=== PATIENT | male | born 1965 | race Caucasian/White ===

== ENCOUNTER 2018-10-20 16:35 | Inpatient (IN) | payer OTHER ==
[2018-10-20 17:54] VITALS: BMI 30.5
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
[2018-10-20] MEDS ORDERED: MAGNESIUM HYDROX 2400MG/30ML ORAL SUSPENSION 30 ML CUP PO PRN (20:34)
[2018-10-20] MEDS ORDERED: MAG HYDROX/AL HYDROX/SIMETH 30 ML UNIT-DOSE CUP PO PRN (20:34)
[2018-10-20] MEDS ORDERED: guaiFENesin/D-METHORPHAN HB 10 ML UNIT-DOSE CUPS PO PRN (20:34)
[2018-10-20] MEDS ORDERED: LOPERAMIDE HCL 2 MG CAPSULE PO PRN (20:34)
[2018-10-20] MEDS ORDERED: IBUPROFEN 400 MG TABLET (FP) PO PRN (20:34)
[2018-10-20] MEDS ORDERED: NICOTINE POLACRILEX 2 MG GUM BC PRN (20:34)
[2018-10-20] MEDS ORDERED: MENTHOL/PHENOL 1 EACH UD MM PRN (20:34)
[2018-10-20] MEDS ORDERED: ACETAMINOPHEN 325 MG TABLET (FP) PO PRN (20:34)
[2018-10-20] MEDS ORDERED: MAGNESIUM CITRATE 300 ML BOTTLE PO PRN (20:34)
[2018-10-20] MEDS ORDERED: P-EPHED 60MG/TRIPROLIDI 2.5MG TABLET PO PRN (20:34)
[2018-10-20] MEDS ORDERED: TRIMETHOBENZAMIDE HCL 200MG/2ML INJ IM PRN (20:55)
[2018-10-20] MEDS ORDERED: METHADONE HCL 10 MG TABLET (FOR DETOX USE ONLY) PO ONE ×2 (21:45→23:00)
[2018-10-20] MEDS: diazePAM 5 MG TABLET PO PRN (22:59)
[2018-10-20] MEDS: THIAMINE HCL 100 MG TABLET (FP) PO SCH (23:01)
--- NOTE | 2018-10-21 07:43 | CONSULT ---
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 Patient reports withdrawal symptoms and seeking for detox. Substance Abuse History: - Smoking Cessation. Smoking history: Current every day smoker. Have you smoked in the past 12 months: Yes. Aproximately how many cigarettes per day: 4. Hx Chewing Tobacco Use: No. Initiated information on smoking cessation: Yes. 'Breaking Loose' booklet given: 10/20/18. - Substance & Tx. History. Hx Alcohol Use: No. Hx Substance Use: Yes. Substance Use Type : Heroin. Hx Substance Use Treatment: Yes ([facility]). - Substances Abused. HEROIN. Route: Injection. Frequency: Daily. Amount used: 10-15 BAGS. Age of first use: 16. Date of Last Use: 10/19/18 Medical History: HepC+, nephrolitiasis, Psychiatric History: Patient reports history of anxiety, depression and ainsomnioa, reports psychiatric admission on 08/2018 at [facility], denies suicidal, homicidal history, reports taking prior to admission. Seroquel 200mg po qhs with good response. Physical/Sexual Abuse/Trauma History: Denies Additional Comment: Seroquel 200mg po qhs Mental Status Exam - Mental Status Exam Alert and Oriented to: Person Cognitive Function: Fair Patient Appearance: Unkempt Mood: Anxious Affect: Mood Congruent Patient Behavior: Cooperative Speech Pattern: Appropriate Voice Loudness: Normal Thought Process: Goal Oriented Thought Disorder: Being Controlled Hallucinations: Denies Suicidal Ideation: Denies Homicidal Ideation: Denies Insight/Judgement: Fair Sleep: Difficulty falling asleep Appetite: Weight gain Muscle strength/Tone: Normal Gait/Station: Normal Additional Comments: Seroquel 200mg po qhs Psychiatric Findings - Problem List ([place] 1, 2,3) (1) Drug-induced mood disorder Current Visit: Yes Status: Acute (2) Opioid dependence with withdrawal Current Visit: Yes Status: Acute (3) Drug induced insomnia Current Visit: Yes Status: Chronic (4) Hepatitis C carrier Current Visit: Yes Status: Chronic (5) IV drug user Current Visit: Yes Status: Chronic (6) Nicotine dependence Current Visit: Yes Status: Chronic Qualifiers: Nicotine product type: cigarettes Substance use status: uncomplicated Qualified Code(s): F17.210 - Nicotine dependence, cigarettes, uncomplicated - Initial Treatment Plan Initial Treatment Plan: Seroquel 200MG PO QHS
[2018-10-21] MEDS ORDERED: METHADONE HCL 10 MG TABLET (FOR DETOX USE ONLY) PO ONE (10:00)
--- NOTE | 2018-10-21 10:03 | PN ---
BHS COWS - Scale Resting Pulse: 0= [place] 80 or Below Sweatin=Flushed/Facial Moisture Restless Observation: 1= Difficult to Sit Still Pupil Size: 0= Normal to Room Light Bone or Joint Aches: 2= Severe Diffuse Aches Runny Nose/ Eye Tearin= Nasal Congestion GI Upset > 30mins: 2= Nausea/Diarrhea Tremor Observation of Outstretched Hands: 2= Slight Tremor Visible Yawning Observation: 2= >3x During Session Anxiety or Irritability: 2=Irritable/Anxious Goose Flesh Skin: 0=Smooth Skin COWS Score: 14 BHS Progress Note (SOAP) Subjective: agitation anxiety sweats irritable interrupted sleep body aches Objective: 10/21/18 10:02 Vital Signs Temperature 97.7 F 10/21/18 09:21 Pulse Rate 68 10/21/18 09:21 Respiratory Rate 18 10/21/18 09:21 Blood Pressure 119/64 10/21/18 09:21 O2 Sat by Pulse Oximetry (%) labs pending aaox3 ambulating no acute distress Assessment: 10/21/18 10:03 withdrawal sx Plan: continue detox increase fluids labs pending
[2018-10-21 10:12] LABS: ALK PHOS 55 U/L (45-117); ANION GAP 5 MMOL/L (8-16); BILIRUBIN,TOTAL 0.3 mg/dL (0.2-1); BLOOD UREA NITROGEN 17 mg/dL (7-18); CALCIUM 8.5 mg/dL (8.5-10.1); CHLORIDE 105 mmol/L (98-107); CO2 30 mmol/L (21-32); CREATININE 0.8 mg/dL (0.55-1.3); GLUCOSE,RANDOM 95 mg/dL (74-106); POTASSIUM 4.7 mmol/L (3.5-5.1); SGOT/AST 26 U/L (15-37); SGPT/ALT 43 U/L (13-61); SODIUM 140 mmol/L (136-145); TOT PROT 6.2 g/dl (6.4-8.2)
[2018-10-21] MEDS: NICOTINE 14 MG/24 HOURS TOPICAL PATCH TD SCH (10:15)
[2018-10-21] MEDS: PRENATAL VITAMINS W/ FOLIC ACID TABLET (FP) PO SCH (10:15)
[2018-10-21] MEDS: diazePAM 5 MG TABLET PO PRN (10:18)
[2018-10-21 10:37] LABS: HEMATOCRIT 40.8 % (35.4-49); HEMOGLOBIN 13.8 GM/dL (11.7-16.9); MCH 30.9 pg (25.7-33.7); MCHC 33.8 g/dl (32.0-35.9); MEAN CELL VOLUME 91.3 fl (80-96); MEAN PLT VOLUME 9.6 fl (7.5-11.1); PLATELET COUNT 224 K/MM3 (134-434); RBC 4.47 M/mm3 (4.00-5.60); RDW 14.3 % (11.9-15.9); WHITE BLOOD COUNT 5.4 K/mm3 (4.0-10.0)
[2018-10-21] MEDS: THIAMINE HCL 100 MG TABLET (FP) PO SCH (22:23)
[2018-10-21] MEDS: QUEtiapine FUMARATE 200 MG TABLET PO SCH (22:23)
[2018-10-21 23:12] LABS: URINE APPEARANCE TURBID; URINE BILIRUBIN NEGATIVE (<2.0 mg/dL); URINE COLOR YELLOW; URINE GLUCOSE (UA) NEGATIVE (NEGATIVE); URINE KETONE NEGATIVE (NEGATIVE); URINE LEUK ESTERASE NEGATIVE (NEGATIVE); URINE NITRITE NEGATIVE (NEGATIVE); URINE PROTEIN NEGATIVE (NEGATIVE); URINE UROBILINOGEN NEGATIVE mg/dL (0.2-1.0)
[2018-10-22] MEDS ORDERED: METHADONE HCL 5 MG TABLET (FOR DETOX USE ONLY) PO ONE (10:00)
[2018-10-22] MEDS: PRENATAL VITAMINS W/ FOLIC ACID TABLET (FP) PO SCH (10:21)
[2018-10-22] MEDS: NICOTINE 14 MG/24 HOURS TOPICAL PATCH TD SCH (10:21)
--- NOTE | 2018-10-22 10:27 | PN ---
S COWS - Scale Resting Pulse: 0= [place] 80 or Below Sweatin=Flushed/Facial Moisture Restless Observation: 0= Sits Still Pupil Size: 0= Normal to Room Light Bone or Joint Aches: 2= Severe Diffuse Aches Runny Nose/ Eye Tearin= Runny Nose/Eyes GI Upset > 30mins: 0= None Tremor Observation of Outstretched Hands: 2= Slight Tremor Visible Yawning Observation: 2= >3x During Session Anxiety or Irritability: 1=Feels Anxious/Irritable Goose Flesh Skin: 0=Smooth Skin COWS Score: 11 S Progress Note (SOAP) Subjective: body aches sweats tired interrupted sleep Objective: 10/22/18 10:22 Vital Signs Temperature 97.0 10/22/18 07:00 Pulse Rate 72 10/22/18 07:00 Respiratory Rate 16 10/22/18 07:00 Blood Pressure 113/70 10/22/18 07:00 O2 Sat by Pulse Oximetry (%) Laboratory Tests 10/21/18 10/21/18 10/21/18 00:00 07:00 07:00 WBC 5.4 RBC 4.47 Hgb 13.8 Hct 40.8 MCV 91.3 MCH 30.9 MCHC 33.8 RDW 14.3 Plt Count 224 MPV 9.6 Sodium 140 Potassium 4.7 Chloride 105 Carbon Dioxide 30 Anion Gap 5 L BUN 17 Creatinine 0.8 Creat Clearance w eGFR > 60 Random Glucose 95 Calcium 8.5 Total Bilirubin 0.3 AST 26 ALT 43 Alkaline Phosphatase 55 Total Protein 6.2 L Albumin 3.0 L Urine Color Yellow Urine Appearance Turbid Urine pH 5.0 Ur Specific [place] 1.024 Urine Protein Negative Urine Glucose (UA) Negative Urine Ketones Negative Urine Blood Negative Urine Nitrite Negative Urine Bilirubin Negative Urine Urobilinogen Negative Ur Leukocyte Esterase Negative RPR Titer 10/21/18 07:00 WBC RBC Hgb Hct MCV MCH MCHC RDW Plt Count MPV Sodium Potassium Chloride Carbon Dioxide Anion Gap BUN Creatinine Creat Clearance w eGFR Random Glucose Calcium Total Bilirubin AST ALT Alkaline Phosphatase Total Protein Albumin Urine Color Urine Appearance Urine pH Ur Specific [place] Urine Protein Urine Glucose (UA) Urine Ketones Urine Blood Urine Nitrite Urine Bilirubin Urine Urobilinogen Ur Leukocyte Esterase RPR Titer Nonreactive aaox3 ambulating no acute distress Assessment: 01/24/19 10:25 withdrawal sx Plan: continue detox increase fluids motrin/tylenol prn
--- NOTE | 2018-10-22 12:26 | EKG ---
Test Reason : Blood Pressure : / mmHG Vent. Rate : 065 BPM Atrial Rate : 065 BPM P-R Int : 138 ms QRS Dur : 090 ms QT Int : 432 ms P-R-T Axes : 032 004 006 degrees QTc Int : 449 ms NORMAL SINUS RHYTHM WITH SINUS ARRHYTHMIA NORMAL ECG NO PREVIOUS ECGS AVAILABLE Confirmed by KURT FLORES MD ([id number]) on 10/22/2018 12:26:11 PM Referred By: Confirmed By:KURT FLORES MD
[2018-10-22] MEDS: diazePAM 5 MG TABLET PO PRN ×2 (15:24→22:19)
[2018-10-22] MEDS: QUEtiapine FUMARATE 200 MG TABLET PO SCH (22:19)
[2018-10-22] MEDS: THIAMINE HCL 100 MG TABLET (FP) PO SCH (22:20)
[2018-10-23] MEDS ORDERED: METHADONE HCL 5 MG TABLET (FOR DETOX USE ONLY) PO ONE (10:00)
[2018-10-23] MEDS: PRENATAL VITAMINS W/ FOLIC ACID TABLET (FP) PO SCH (10:19)
[2018-10-23] MEDS: NICOTINE 14 MG/24 HOURS TOPICAL PATCH TD SCH (10:19)
--- NOTE | 2018-10-23 13:00 | PN ---
BHS Progress Note (SOAP) Subjective: sweats I want to stay until friday; pt is able to stay until friday and will go to rehab afterwards. Objective: 10/23/18 13:00 Vital Signs Temperature 97.3 F L 10/23/18 09:22 Pulse Rate 69 10/23/18 09:22 Respiratory Rate 18 10/23/18 09:22 Blood Pressure 87/52 L 10/23/18 09:22 O2 Sat by Pulse Oximetry (%) aapx3 ambulating no acute distress Assessment: 10/23/18 13:00 mild withdrawal sx Plan: continue detox increase fluids
[2018-10-23] MEDS: diazePAM 5 MG TABLET PO PRN (15:06)
[2018-10-23] MEDS: MELATONIN 5 MG TABLETS PO PRN (22:06)
[2018-10-23] MEDS: THIAMINE HCL 100 MG TABLET (FP) PO SCH (22:06)
[2018-10-23] MEDS: QUEtiapine FUMARATE 200 MG TABLET PO SCH (22:06)
[2018-10-24] MEDS ORDERED: METHADONE HCL 10 MG TABLET (FOR DETOX USE ONLY) PO ONE (10:00)
[2018-10-24] MEDS: PRENATAL VITAMINS W/ FOLIC ACID TABLET (FP) PO SCH (10:11)
[2018-10-24] MEDS: NICOTINE 14 MG/24 HOURS TOPICAL PATCH TD SCH (10:11)
--- NOTE | 2018-10-24 13:29 | PN ---
BHS Progress Note (SOAP) Subjective: Back pain and sweats Objective: 10/24/18 13:28 Vital Signs 10/24/18 10/24/18 10/24/18 06:00 06:23 09:47 Temperature 97.7 F 98.1 F Pulse Rate 57 L 65 Respiratory 18 18 18 Rate Blood Pressure 92/55 L 96/53 L Laboratory Last Values WBC 5.4 K/mm3 (4.0-10.0) 10/21/18 07:00 RBC 4.47 M/mm3 (4.00-5.60) 10/21/18 07:00 Hgb 13.8 GM/dL (11.7-16.9) 10/21/18 07:00 Hct 40.8 % (35.4-49) 10/21/18 07:00 MCV 91.3 fl (80-96) 10/21/18 07:00 MCH 30.9 pg (25.7-33.7) 10/21/18 07:00 MCHC 33.8 g/dl (32.0-35.9) 10/21/18 07:00 RDW 14.3 % (11.9-15.9) 10/21/18 07:00 Plt Count 224 K/MM3 (134-434) 10/21/18 07:00 MPV 9.6 fl (7.5-11.1) 10/21/18 07:00 Sodium 140 mmol/L (136-145) 10/21/18 07:00 Potassium 4.7 mmol/L (3.5-5.1) 10/21/18 07:00 Chloride 105 mmol/L (98-107) 10/21/18 07:00 Carbon Dioxide 30 mmol/L (21-32) 10/21/18 07:00 Anion Gap 5 MMOL/L (8-16) L 10/21/18 07:00 BUN 17 mg/dL (7-18) 10/21/18 07:00 Creatinine 0.8 mg/dL (0.55-1.3) 10/21/18 07:00 Creat Clearance w eGFR > 60 (>60) 10/21/18 07:00 Random Glucose 95 mg/dL (74-106) 10/21/18 07:00 Calcium 8.5 mg/dL (8.5-10.1) 10/21/18 07:00 Total Bilirubin 0.3 mg/dL (0.2-1) 10/21/18 07:00 AST 26 U/L (15-37) 10/21/18 07:00 ALT 43 U/L (13-61) 10/21/18 07:00 Alkaline Phosphatase 55 U/L (45-117) 10/21/18 07:00 Total Protein 6.2 g/dl (6.4-8.2) L 10/21/18 07:00 Albumin 3.0 g/dl (3.4-5.0) L 10/21/18 07:00 Urine Color Yellow 10/21/18 00:00 Urine Appearance Turbid 10/21/18 00:00 Urine pH 5.0 (5.0-8.0) 10/21/18 00:00 Ur Specific [place] 1.024 (1.010-1.035) 10/21/18 00:00 Urine Protein Negative (NEGATIVE) 10/21/18 00:00 Urine Glucose (UA) Negative (NEGATIVE) 10/21/18 00:00 Urine Ketones Negative (NEGATIVE) 10/21/18 00:00 Urine Blood Negative (NEGATIVE) 10/21/18 00:00 Urine Nitrite Negative (NEGATIVE) 10/21/18 00:00 Urine Bilirubin Negative (<2.0 mg/dL) 10/21/18 00:00 Urine Urobilinogen Negative mg/dL (0.2-1.0) 10/21/18 00:00 Ur Leukocyte Esterase Negative (NEGATIVE) 10/21/18 00:00 RPR Titer Nonreactive (NONREACTIVE) 10/21/18 07:00 Labs noted-no panic values Assessment: 10/24/18 13:29 Withdrawal sx Plan: Continue detox
[2018-10-24] MEDS: THIAMINE HCL 100 MG TABLET (FP) PO SCH (22:40)
[2018-10-24] MEDS: QUEtiapine FUMARATE 200 MG TABLET PO SCH (22:40)
[2018-10-25] MEDS ORDERED: METHADONE HCL 5 MG TABLET (FOR DETOX USE ONLY) PO ONE (06:00)
[2018-10-25] MEDS: PRENATAL VITAMINS W/ FOLIC ACID TABLET (FP) PO SCH (09:44)
[2018-10-25] MEDS: NICOTINE 14 MG/24 HOURS TOPICAL PATCH TD SCH (09:45)
--- NOTE | 2018-10-25 16:53 | PN ---
BHS Progress Note (SOAP) Subjective: Interrupted sleep, body aches, runny nose. Patient for discharge today but still having withdrawal symptoms. Patient requested to be discharged tomorrow instead as his program ([facility]) only does intake during the week and he will have to go there tomorrow, plus he's still having withdrawal symptoms. Objective: 10/25/18 16:50 Last Vital Signs Temp Pulse Resp BP Pulse Ox 97.5 F L 79 18 96/59 L 10/25/18 14:30 10/25/18 14:30 10/25/18 14:30 10/25/18 14:30 Hypotension noted: 96/59, encouraged to drink more water, asymptomatic Laboratory Tests 10/21/18 10/21/18 10/21/18 00:00 07:00 07:00 WBC 5.4 RBC 4.47 Hgb 13.8 Hct 40.8 MCV 91.3 MCH 30.9 MCHC 33.8 RDW 14.3 Plt Count 224 MPV 9.6 Sodium 140 Potassium 4.7 Chloride 105 Carbon Dioxide 30 Anion Gap 5 L BUN 17 Creatinine 0.8 Creat Clearance w eGFR > 60 Random Glucose 95 Calcium 8.5 Total Bilirubin 0.3 AST 26 ALT 43 Alkaline Phosphatase 55 Total Protein 6.2 L Albumin 3.0 L Urine Color Yellow Urine Appearance Turbid Urine pH 5.0 Ur Specific [place] 1.024 Urine Protein Negative Urine Glucose (UA) Negative Urine Ketones Negative Urine Blood Negative Urine Nitrite Negative Urine Bilirubin Negative Urine Urobilinogen Negative Ur Leukocyte Esterase Negative RPR Titer 10/21/18 07:00 WBC RBC Hgb Hct MCV MCH MCHC RDW Plt Count MPV Sodium Potassium Chloride Carbon Dioxide Anion Gap BUN Creatinine Creat Clearance w eGFR Random Glucose Calcium Total Bilirubin AST ALT Alkaline Phosphatase Total Protein Albumin Urine Color Urine Appearance Urine pH Ur Specific [place] Urine Protein Urine Glucose (UA) Urine Ketones Urine Blood Urine Nitrite Urine Bilirubin Urine Urobilinogen Ur Leukocyte Esterase RPR Titer Nonreactive Labs reviewed Assessment: 10/25/18 16:51 Withdrawal symptoms Hypotension noted Plan: Continue detox Hypotension: asymptomatic, encouraged PO water hydration
[2018-10-25] MEDS: THIAMINE HCL 100 MG TABLET (FP) PO SCH (22:14)
[2018-10-25] MEDS: QUEtiapine FUMARATE 200 MG TABLET PO SCH (22:14)
[2018-10-25] MEDS: MELATONIN 5 MG TABLETS PO PRN (22:15)
[2018-10-26 09:28] VITALS: BP 108/60; PULSE 93; TEMP 96.8
--- NOTE | 2018-10-26 09:34 | DS ---
[facility] Detox Discharge Summary Admission Date: 10/20/18 Discharge Date: 10/26/18 - History Present History: Opioid Dependence - Physical Exam Results Vital Signs: Vital Signs Temperature 96.8 F L 10/26/18 08:35 Pulse Rate 93 H 10/26/18 08:35 Respiratory Rate 18 10/26/18 08:35 Blood Pressure 108/60 10/26/18 08:35 O2 Sat by Pulse Oximetry (%) - Treatment Hospital Course: Detox Protocol Followed, Detoxed Safely, Responded well, Discharged Condition Good, Rehab Referral Accepted - Medication Discharge Medications: Ambulatory Orders Alprazolam [Xanax] 1 mg PO DAILY 10/20/18 Quetiapine Fumarate [Seroquel -] 100 mg PO HS #30 tab 10/21/18 Quetiapine Fumarate [Seroquel] 100 mg PO HS #30 tablet 10/21/18 - Diagnosis (1) Depressed affect Current Visit: Yes Status: Acute (2) Drug-induced mood disorder Current Visit: Yes Status: Acute (3) Opioid dependence with withdrawal Current Visit: Yes Status: Chronic (4) Drug induced insomnia Current Visit: Yes Status: Chronic (5) Hepatitis C carrier Current Visit: Yes Status: Chronic (6) IV drug user Current Visit: Yes Status: Chronic (7) Nicotine dependence Current Visit: Yes Status: Chronic Qualifiers: Nicotine product type: cigarettes Substance use status: uncomplicated Qualified Code(s): F17.210 - Nicotine dependence, cigarettes, uncomplicated (8) PPD positive, treated Current Visit: Yes Status: Chronic - AMA Did Patient Leave Against Medical Advice: No ([facility]erred to [facility] )
== END 2018-10-26 08:56 | disposition home or self-care (01) | DRG 773 ==
LOC: YASAS 16:35 → Y6N 20:51
PROVIDERS: ADMIT Neuromusculoskeletal Medicine & OMM; ATTEND Neuromusculoskeletal Medicine & OMM
PROC: HZ2ZZZZ Detoxification Services for Substance Abuse Treatment (ICD-10-PCS; principal; 2018-10-20)
DX: F11.23 Opioid dependence with withdrawal (principal); F17.210 Nicotine dependence, cigarettes, uncomplicated; F19.282 Other psychoactive substance dependence with psychoactive substance-induced sleep disorder; F19.24 Other psychoactive substance dependence with psychoactive substance-induced mood disorder; I95.9 Hypotension, unspecified; R45.89 Other symptoms and signs involving emotional state; R76.11 Nonspecific reaction to tuberculin skin test without active tuberculosis; B18.2 Chronic viral hepatitis C
CPT/HCPCS: 36415; 71046-TC-FY; 80053; 81003; 85027; 86593; 93005; 93010

== ENCOUNTER 2022-06-12 12:54 | Inpatient (IN) | payer OTHER ==
[2022-06-12 15:30] VITALS: BMI 27.6
[2022-06-12] MEDS ORDERED: ONDANSETRON *ODT* 4 MG TABLET SL PRN (18:40)
[2022-06-12] MEDS ORDERED: MAGNESIUM CITRATE 300 ML BOTTLE PO PRN (18:40)
[2022-06-12] MEDS ORDERED: MAG HYDROX/AL HYDROX/SIMETH 30 ML UNIT-DOSE CUP PO PRN (18:40)
[2022-06-12] MEDS ORDERED: BISMUTH SUBSALICYLATE 524 MG/30 ML PO PRN (18:40)
[2022-06-12] MEDS ORDERED: IBUPROFEN 600 MG TABLET (FP) PO PRN (18:40)
[2022-06-12] MEDS ORDERED: ACETAMINOPHEN 325 MG TABLET (FP) PO PRN ×2 (18:40)
[2022-06-12] MEDS ORDERED: MAGNESIUM HYDROX 2400MG/30ML ORAL SUSPENSION 30 ML CUP PO PRN (18:40)
[2022-06-12] MEDS ORDERED: DICYCLOMINE HCL 10 MG CAPSULE PO PRN (18:40)
[2022-06-12] MEDS ORDERED: NALOXONE HCL (KLOXXADO) 8 MG SPRAY NS PRN (18:40)
[2022-06-12] MEDS ORDERED: BENZOCAINE/MENTHOL (CHLORASEPTIC ) LOZENGE MM PRN (18:40)
[2022-06-12] MEDS ORDERED: IBUPROFEN 400 MG TABLET (FP) PO PRN (18:40)
[2022-06-12] MEDS ORDERED: NICOTINE 10 MG CARTRIDGE (INHALER) IH PRN (18:40)
[2022-06-12] MEDS ORDERED: LOPERAMIDE HCL 2 MG CAPSULE PO PRN (18:40)
[2022-06-12] MEDS: cloNIDine HCL 0.1 MG TABLET PO PRN (19:52)
[2022-06-12] MEDS: METHOCARBAMOL 500 MG TABLET PO PRN (19:52)
[2022-06-12] MEDS ORDERED: methaDONE HCL 10 MG TABLET (FOR DETOX USE ONLY) PO ONE (19:55)
[2022-06-12] MEDS ORDERED: QUEtiapine FUMARATE 100 MG TABLET (FP) PO ONE (20:00)
[2022-06-12] MEDS: MELATONIN 5 MG TABLETS PO SCH (22:16)
[2022-06-12] MEDS: hydrOXYzine PAMOATE 25 MG CAPSULE (FP) PO SCH (22:16)
[2022-06-12] MEDS: THIAMINE HCL 100 MG TABLET (FP) PO SCH (22:16)
[2022-06-13] MEDS: METHOCARBAMOL 500 MG TABLET PO PRN ×2 (06:24→17:32)
[2022-06-13] MEDS: cloNIDine HCL 0.1 MG TABLET PO PRN ×2 (06:24→22:15)
[2022-06-13] MEDS: hydrOXYzine PAMOATE 25 MG CAPSULE (FP) PO SCH ×5 (06:24→22:15)
[2022-06-13] MEDS: PRENATAL VITAMINS W/ FOLIC ACID TABLET (FP) PO SCH (09:41)
[2022-06-13 10:57] LABS: ALBUMIN 3.4 g/dl (3.4-5.0); BLOOD UREA NITROGEN 19.3 mg/dL (7-18)
[2022-06-13 10:58] LABS: CREATININE 0.9 mg/dL (0.55-1.3)
[2022-06-13 11:00] LABS: BILIRUBIN,TOTAL 0.2 mg/dL (0.2-1); TOT PROT 6.9 g/dl (6.4-8.2)
[2022-06-13 11:03] LABS: CALCIUM 8.8 mg/dL (8.5-10.1); HEMATOCRIT 38.7 % (35.4-49); MCH 29.8 pg (25.7-33.7); MCHC 33.7 g/dl (32.0-35.9); MEAN CELL VOLUME 88.3 fl (80-96); MEAN PLT VOLUME 9.7 fl (7.5-11.1); PLATELET COUNT 188 10^3/uL (134-434); RBC 4.38 M/mm3 (4.00-5.60); RDW 13.8 % (11.9-15.9); WHITE BLOOD COUNT 5.8 K/mm3 (4.0-10.0)
[2022-06-13 11:44] LABS: HIV INTERPRETATION NEGATIVE (NEGATIVE)
[2022-06-13] MEDS: QUEtiapine FUMARATE 50 MG TABLET PO SCH (17:32)
[2022-06-13] MEDS: QUEtiapine FUMARATE 300 MG TABLET PO SCH (22:15)
[2022-06-13] MEDS: MELATONIN 5 MG TABLETS PO SCH (22:15)
[2022-06-13] MEDS: THIAMINE HCL 100 MG TABLET (FP) PO SCH (22:15)
[2022-06-14] MEDS: hydrOXYzine PAMOATE 25 MG CAPSULE (FP) PO SCH ×5 (06:56→22:21)
[2022-06-14] MEDS ORDERED: methaDONE HCL 10 MG TABLET (FOR DETOX USE ONLY) PO ONE (10:00)
[2022-06-14] MEDS: PRENATAL VITAMINS W/ FOLIC ACID TABLET (FP) PO SCH (10:15)
[2022-06-14] MEDS: QUEtiapine FUMARATE 50 MG TABLET PO SCH ×2 (10:15→17:37)
[2022-06-14] MEDS: MELATONIN 5 MG TABLETS PO SCH (22:21)
[2022-06-14] MEDS: QUEtiapine FUMARATE 300 MG TABLET PO SCH (22:21)
[2022-06-14] MEDS: THIAMINE HCL 100 MG TABLET (FP) PO SCH (22:21)
[2022-06-15] MEDS: hydrOXYzine PAMOATE 25 MG CAPSULE (FP) PO SCH ×5 (06:01→22:19)
[2022-06-15] MEDS: QUEtiapine FUMARATE 50 MG TABLET PO SCH ×2 (10:00→17:20)
[2022-06-15] MEDS: METHOCARBAMOL 500 MG TABLET PO PRN (10:00)
[2022-06-15] MEDS: PRENATAL VITAMINS W/ FOLIC ACID TABLET (FP) PO SCH (10:00)
[2022-06-15] MEDS: THIAMINE HCL 100 MG TABLET (FP) PO SCH (22:19)
[2022-06-15] MEDS: MELATONIN 5 MG TABLETS PO SCH (22:19)
[2022-06-15] MEDS: QUEtiapine FUMARATE 300 MG TABLET PO SCH (22:19)
[2022-06-16] MEDS: hydrOXYzine PAMOATE 25 MG CAPSULE (FP) PO SCH ×5 (06:48→22:10)
[2022-06-16] MEDS ORDERED: methaDONE HCL 10 MG TABLET (FOR DETOX USE ONLY) PO ONE (10:00)
[2022-06-16] MEDS: PRENATAL VITAMINS W/ FOLIC ACID TABLET (FP) PO SCH (10:09)
[2022-06-16] MEDS: QUEtiapine FUMARATE 50 MG TABLET PO SCH ×2 (10:11→17:59)
[2022-06-16] MEDS: QUEtiapine FUMARATE 300 MG TABLET PO SCH (22:09)
[2022-06-16] MEDS: THIAMINE HCL 100 MG TABLET (FP) PO SCH (22:10)
[2022-06-16] MEDS: MELATONIN 5 MG TABLETS PO SCH (22:10)
[2022-06-16] MEDS: CLINDAMYCIN HCL 150 MG CAPSULE (FP) PO SCH (23:02)
[2022-06-17] MEDS: CLINDAMYCIN HCL 150 MG CAPSULE (FP) PO SCH ×2 (06:50→11:44)
[2022-06-17] MEDS: hydrOXYzine PAMOATE 25 MG CAPSULE (FP) PO SCH ×2 (06:50→09:55)
[2022-06-17] MEDS ORDERED: QUEtiapine FUMARATE 25 MG TABLET ONE (09:50)
[2022-06-17] MEDS: PRENATAL VITAMINS W/ FOLIC ACID TABLET (FP) PO SCH (09:57)
[2022-06-17] MEDS: QUEtiapine FUMARATE 50 MG TABLET PO SCH (09:57)
[2022-06-17 12:59] VITALS: BP 128/90; PULSE 103; RESP 18; TEMP 97.7
== END 2022-06-17 13:34 | disposition other institution (70) | DRG 773 ==
LOC: YASAS 12:54 → Y3N 18:50
PROVIDERS: ADMIT Allergy & Immunology; ATTEND Surgery
PROC: HZ2ZZZZ Detoxification Services for Substance Abuse Treatment (ICD-10-PCS; principal; 2022-06-12)
DX: F11.23 Opioid dependence with withdrawal (principal); F13.20 Sedative, hypnotic or anxiolytic dependence, uncomplicated; F12.20 Cannabis dependence, uncomplicated; F17.210 Nicotine dependence, cigarettes, uncomplicated; F19.282 Other psychoactive substance dependence with psychoactive substance-induced sleep disorder; F19.24 Other psychoactive substance dependence with psychoactive substance-induced mood disorder; F31.9 Bipolar disorder, unspecified; Z62.810 Personal history of physical and sexual abuse in childhood; Z86.19 Personal history of other infectious and parasitic diseases; Z56.0 Unemployment, unspecified; Z59.00 Homelessness unspecified; Z91.013 Allergy to seafood
CPT/HCPCS: 36415; 71046-TC-FY; 80053; 85027; 86780; 87389; 93005; 93010; C9803-CS; U0003; U0005

== ENCOUNTER 2022-06-17 13:46 | Inpatient (IN) | payer OTHER ==
[2022-06-17] MEDS ORDERED: LOPERAMIDE HCL 2 MG CAPSULE PO PRN (14:41)
[2022-06-17] MEDS ORDERED: guaiFENesin 200 MG/10 ML 10 ML UNIT-DOSE CUPS PO PRN (14:41)
[2022-06-17] MEDS ORDERED: BENZOCAINE/MENTHOL (CHLORASEPTIC ) LOZENGE MM PRN (14:41)
[2022-06-17] MEDS ORDERED: MAG HYDROX/AL HYDROX/SIMETH 30 ML UNIT-DOSE CUP PO PRN (14:41)
[2022-06-17] MEDS ORDERED: MAGNESIUM CITRATE 300 ML BOTTLE PO PRN (14:41)
[2022-06-17] MEDS ORDERED: ACETAMINOPHEN 325 MG TABLET (FP) PO PRN (14:41)
[2022-06-17] MEDS ORDERED: MAGNESIUM HYDROX 2400MG/30ML ORAL SUSPENSION 30 ML CUP PO PRN (14:41)
[2022-06-17] MEDS ORDERED: P-EPHED 60MG/TRIPROLIDI 2.5MG TABLET PO PRN (14:41)
[2022-06-17] MEDS: CLINDAMYCIN HCL 150 MG CAPSULE (FP) PO SCH ×2 (17:45→23:42)
[2022-06-17] MEDS: QUEtiapine FUMARATE 50 MG TABLET PO SCH (17:45)
[2022-06-17] MEDS: MELATONIN 5 MG TABLETS PO SCH (21:42)
[2022-06-17] MEDS: hydrOXYzine PAMOATE 25 MG CAPSULE (FP) PO PRN (21:42)
[2022-06-17] MEDS: THIAMINE HCL 100 MG TABLET (FP) PO SCH (21:42)
[2022-06-17] MEDS: QUEtiapine FUMARATE 100 MG TABLET (FP) PO SCH (21:44)
[2022-06-18] MEDS: CLINDAMYCIN HCL 150 MG CAPSULE (FP) PO SCH ×3 (06:54→17:44)
[2022-06-18] MEDS: PRENATAL VITAMINS W/ FOLIC ACID TABLET (FP) PO SCH (10:26)
[2022-06-18] MEDS: QUEtiapine FUMARATE 50 MG TABLET PO SCH ×2 (10:26→17:44)
[2022-06-18] MEDS: NICOTINE 7 MG/24 HOURS TOPICAL PATCH TD SCH (10:26)
[2022-06-18] MEDS: MELATONIN 5 MG TABLETS PO SCH (21:27)
[2022-06-18] MEDS: hydrOXYzine PAMOATE 25 MG CAPSULE (FP) PO PRN (21:27)
[2022-06-18] MEDS: THIAMINE HCL 100 MG TABLET (FP) PO SCH (21:27)
[2022-06-18] MEDS: QUEtiapine FUMARATE 100 MG TABLET (FP) PO SCH (21:28)
[2022-06-19] MEDS: CLINDAMYCIN HCL 150 MG CAPSULE (FP) PO SCH ×4 (06:17→17:18)
[2022-06-19] MEDS: NICOTINE 7 MG/24 HOURS TOPICAL PATCH TD SCH (09:25)
[2022-06-19] MEDS: QUEtiapine FUMARATE 50 MG TABLET PO SCH ×2 (09:25→17:17)
[2022-06-19] MEDS: PRENATAL VITAMINS W/ FOLIC ACID TABLET (FP) PO SCH (09:25)
[2022-06-19] MEDS: IBUPROFEN 400 MG TABLET (FP) PO PRN (09:27)
[2022-06-19] MEDS: hydrOXYzine PAMOATE 25 MG CAPSULE (FP) PO PRN (09:27)
[2022-06-19] MEDS: MELATONIN 5 MG TABLETS PO SCH (21:23)
[2022-06-19] MEDS: THIAMINE HCL 100 MG TABLET (FP) PO SCH (21:23)
[2022-06-19] MEDS: QUEtiapine FUMARATE 100 MG TABLET (FP) PO SCH (21:23)
[2022-06-20] MEDS: CLINDAMYCIN HCL 150 MG CAPSULE (FP) PO SCH ×5 (00:43→23:46)
[2022-06-20] MEDS: QUEtiapine FUMARATE 50 MG TABLET PO SCH ×2 (09:44→17:15)
[2022-06-20] MEDS: IBUPROFEN 400 MG TABLET (FP) PO PRN (09:45)
[2022-06-20] MEDS: NICOTINE 7 MG/24 HOURS TOPICAL PATCH TD SCH (09:45)
[2022-06-20] MEDS: PRENATAL VITAMINS W/ FOLIC ACID TABLET (FP) PO SCH (09:45)
[2022-06-20] MEDS: QUEtiapine FUMARATE 100 MG TABLET (FP) PO SCH (21:13)
[2022-06-20] MEDS: MELATONIN 5 MG TABLETS PO SCH (21:13)
[2022-06-20] MEDS: THIAMINE HCL 100 MG TABLET (FP) PO SCH (21:13)
[2022-06-20] MEDS: hydrOXYzine PAMOATE 25 MG CAPSULE (FP) PO PRN (21:13)
[2022-06-21] MEDS: CLINDAMYCIN HCL 150 MG CAPSULE (FP) PO SCH ×3 (06:30→17:07)
[2022-06-21] MEDS: PRENATAL VITAMINS W/ FOLIC ACID TABLET (FP) PO SCH (09:06)
[2022-06-21] MEDS: NICOTINE 7 MG/24 HOURS TOPICAL PATCH TD SCH (09:06)
[2022-06-21] MEDS: QUEtiapine FUMARATE 50 MG TABLET PO SCH ×2 (09:06→17:07)
[2022-06-21] MEDS ORDERED: BUPRENORPHINE/NALOXONE 4 MG/1 MG FILM PACKET SL ONE (16:15)
[2022-06-21] MEDS ORDERED: BUPRENORPHINE/NALOXONE 8 MG/2 MG FILM PACKET SL SCH (18:00)
[2022-06-21] MEDS: QUEtiapine FUMARATE 100 MG TABLET (FP) PO SCH (21:09)
[2022-06-21] MEDS: THIAMINE HCL 100 MG TABLET (FP) PO SCH (21:09)
[2022-06-21] MEDS: MELATONIN 5 MG TABLETS PO SCH (21:09)
[2022-06-22] MEDS: CLINDAMYCIN HCL 150 MG CAPSULE (FP) PO SCH ×4 (00:11→18:03)
[2022-06-22] MEDS: QUEtiapine FUMARATE 50 MG TABLET PO SCH ×2 (10:12→17:38)
[2022-06-22] MEDS: PRENATAL VITAMINS W/ FOLIC ACID TABLET (FP) PO SCH (10:12)
[2022-06-22] MEDS: BUPRENORPHINE/NALOXONE 8 MG/2 MG FILM PACKET SL SCH ×2 (10:13→18:03)
[2022-06-22] MEDS: NICOTINE 7 MG/24 HOURS TOPICAL PATCH TD SCH (10:13)
[2022-06-22] MEDS: hydrOXYzine PAMOATE 25 MG CAPSULE (FP) PO PRN (21:09)
[2022-06-22] MEDS: QUEtiapine FUMARATE 100 MG TABLET (FP) PO SCH (21:09)
[2022-06-22] MEDS: MELATONIN 5 MG TABLETS PO SCH (21:10)
[2022-06-22] MEDS: THIAMINE HCL 100 MG TABLET (FP) PO SCH (21:10)
[2022-06-23] MEDS: CLINDAMYCIN HCL 150 MG CAPSULE (FP) PO SCH ×4 (00:30→17:55)
[2022-06-23] MEDS: QUEtiapine FUMARATE 50 MG TABLET PO SCH ×2 (10:28→17:54)
[2022-06-23] MEDS: NICOTINE 7 MG/24 HOURS TOPICAL PATCH TD SCH (10:29)
[2022-06-23] MEDS: BUPRENORPHINE/NALOXONE 8 MG/2 MG FILM PACKET SL SCH ×2 (10:29→17:55)
[2022-06-23] MEDS: PRENATAL VITAMINS W/ FOLIC ACID TABLET (FP) PO SCH (10:29)
[2022-06-23] MEDS: THIAMINE HCL 100 MG TABLET (FP) PO SCH (21:22)
[2022-06-23] MEDS: QUEtiapine FUMARATE 100 MG TABLET (FP) PO SCH (21:22)
[2022-06-23] MEDS: MELATONIN 5 MG TABLETS PO SCH (21:22)
[2022-06-24] MEDS: CLINDAMYCIN HCL 150 MG CAPSULE (FP) PO SCH ×3 (01:41→12:04)
[2022-06-24] MEDS: PRENATAL VITAMINS W/ FOLIC ACID TABLET (FP) PO SCH (10:31)
[2022-06-24] MEDS: NICOTINE 7 MG/24 HOURS TOPICAL PATCH TD SCH (10:31)
[2022-06-24] MEDS: BUPRENORPHINE/NALOXONE 8 MG/2 MG FILM PACKET SL SCH ×2 (10:33→17:27)
[2022-06-24] MEDS: QUEtiapine FUMARATE 50 MG TABLET PO SCH ×2 (11:00→17:27)
[2022-06-24] MEDS: QUEtiapine FUMARATE 100 MG TABLET (FP) PO SCH (21:20)
[2022-06-24] MEDS: MELATONIN 5 MG TABLETS PO SCH (21:20)
[2022-06-24] MEDS: THIAMINE HCL 100 MG TABLET (FP) PO SCH (21:20)
[2022-06-25] MEDS: QUEtiapine FUMARATE 50 MG TABLET PO SCH ×2 (10:12→17:57)
[2022-06-25] MEDS: PRENATAL VITAMINS W/ FOLIC ACID TABLET (FP) PO SCH (10:12)
[2022-06-25] MEDS: BUPRENORPHINE/NALOXONE 8 MG/2 MG FILM PACKET SL SCH ×2 (10:12→17:57)
[2022-06-25] MEDS: NICOTINE 7 MG/24 HOURS TOPICAL PATCH TD SCH (10:13)
[2022-06-25] MEDS: MELATONIN 5 MG TABLETS PO SCH (21:07)
[2022-06-25] MEDS: THIAMINE HCL 100 MG TABLET (FP) PO SCH (21:07)
[2022-06-25] MEDS: QUEtiapine FUMARATE 100 MG TABLET (FP) PO SCH (21:07)
[2022-06-26] MEDS: BUPRENORPHINE/NALOXONE 8 MG/2 MG FILM PACKET SL SCH ×2 (09:54→17:45)
[2022-06-26] MEDS: PRENATAL VITAMINS W/ FOLIC ACID TABLET (FP) PO SCH (09:55)
[2022-06-26] MEDS: NICOTINE 7 MG/24 HOURS TOPICAL PATCH TD SCH (09:55)
[2022-06-26] MEDS: QUEtiapine FUMARATE 50 MG TABLET PO SCH ×2 (09:55→17:45)
[2022-06-26] MEDS: QUEtiapine FUMARATE 100 MG TABLET (FP) PO SCH (21:04)
[2022-06-26] MEDS: MELATONIN 5 MG TABLETS PO SCH (21:04)
[2022-06-26] MEDS: THIAMINE HCL 100 MG TABLET (FP) PO SCH (21:04)
[2022-06-27] MEDS: QUEtiapine FUMARATE 50 MG TABLET PO SCH ×2 (09:37→18:13)
[2022-06-27] MEDS: BUPRENORPHINE/NALOXONE 8 MG/2 MG FILM PACKET SL SCH ×2 (09:37→18:13)
[2022-06-27] MEDS: PRENATAL VITAMINS W/ FOLIC ACID TABLET (FP) PO SCH (09:37)
[2022-06-27] MEDS: NICOTINE 7 MG/24 HOURS TOPICAL PATCH TD SCH (09:38)
[2022-06-27] MEDS: QUEtiapine FUMARATE 100 MG TABLET (FP) PO SCH (21:03)
[2022-06-27] MEDS: MELATONIN 5 MG TABLETS PO SCH (21:03)
[2022-06-27] MEDS: THIAMINE HCL 100 MG TABLET (FP) PO SCH (21:03)
[2022-06-28] MEDS: QUEtiapine FUMARATE 50 MG TABLET PO SCH ×2 (10:18→17:34)
[2022-06-28] MEDS: PRENATAL VITAMINS W/ FOLIC ACID TABLET (FP) PO SCH (10:18)
[2022-06-28] MEDS: BUPRENORPHINE/NALOXONE 8 MG/2 MG FILM PACKET SL SCH ×2 (10:18→18:06)
[2022-06-28] MEDS: NICOTINE 7 MG/24 HOURS TOPICAL PATCH TD SCH (10:19)
[2022-06-28] MEDS: THIAMINE HCL 100 MG TABLET (FP) PO SCH (21:05)
[2022-06-28] MEDS: QUEtiapine FUMARATE 100 MG TABLET (FP) PO SCH (21:05)
[2022-06-28] MEDS: MELATONIN 5 MG TABLETS PO SCH (21:05)
[2022-06-28] MEDS: hydrOXYzine PAMOATE 25 MG CAPSULE (FP) PO PRN (21:05)
[2022-06-29] MEDS: NICOTINE 7 MG/24 HOURS TOPICAL PATCH TD SCH (09:59)
[2022-06-29] MEDS: QUEtiapine FUMARATE 50 MG TABLET PO SCH ×2 (09:59→17:50)
[2022-06-29] MEDS: BUPRENORPHINE/NALOXONE 8 MG/2 MG FILM PACKET SL SCH ×2 (09:59→17:50)
[2022-06-29] MEDS: PRENATAL VITAMINS W/ FOLIC ACID TABLET (FP) PO SCH (09:59)
[2022-06-29] MEDS: NICOTINE 10 MG CARTRIDGE (INHALER) IH PRN (10:01)
[2022-06-29] MEDS: QUEtiapine FUMARATE 100 MG TABLET (FP) PO SCH (21:07)
[2022-06-29] MEDS: THIAMINE HCL 100 MG TABLET (FP) PO SCH (21:07)
[2022-06-29] MEDS: MELATONIN 5 MG TABLETS PO SCH (21:07)
[2022-06-30] MEDS: PRENATAL VITAMINS W/ FOLIC ACID TABLET (FP) PO SCH (09:40)
[2022-06-30] MEDS: NICOTINE 7 MG/24 HOURS TOPICAL PATCH TD SCH (09:40)
[2022-06-30] MEDS: QUEtiapine FUMARATE 50 MG TABLET PO SCH ×2 (09:40→17:56)
[2022-06-30] MEDS: BUPRENORPHINE/NALOXONE 8 MG/2 MG FILM PACKET SL SCH ×2 (09:40→17:56)
[2022-06-30] MEDS: NICOTINE 10 MG CARTRIDGE (INHALER) IH PRN ×2 (09:41→17:57)
[2022-06-30] MEDS: MELATONIN 5 MG TABLETS PO SCH (21:13)
[2022-06-30] MEDS: THIAMINE HCL 100 MG TABLET (FP) PO SCH (21:13)
[2022-06-30] MEDS: QUEtiapine FUMARATE 100 MG TABLET (FP) PO SCH (21:14)
[2022-07-01] MEDS: BUPRENORPHINE/NALOXONE 8 MG/2 MG FILM PACKET SL SCH ×2 (10:21→17:51)
[2022-07-01] MEDS: NICOTINE 10 MG CARTRIDGE (INHALER) IH PRN ×2 (10:22→17:51)
[2022-07-01] MEDS: PRENATAL VITAMINS W/ FOLIC ACID TABLET (FP) PO SCH (10:22)
[2022-07-01] MEDS: NICOTINE 7 MG/24 HOURS TOPICAL PATCH TD SCH (10:22)
[2022-07-01] MEDS: QUEtiapine FUMARATE 50 MG TABLET PO SCH ×2 (10:22→17:51)
[2022-07-01] MEDS: THIAMINE HCL 100 MG TABLET (FP) PO SCH (21:06)
[2022-07-01] MEDS: QUEtiapine FUMARATE 100 MG TABLET (FP) PO SCH (21:06)
[2022-07-01] MEDS: MELATONIN 5 MG TABLETS PO SCH (21:06)
[2022-07-02] MEDS: NICOTINE 7 MG/24 HOURS TOPICAL PATCH TD SCH (09:48)
[2022-07-02] MEDS: BUPRENORPHINE/NALOXONE 8 MG/2 MG FILM PACKET SL SCH ×2 (09:48→18:00)
[2022-07-02] MEDS: PRENATAL VITAMINS W/ FOLIC ACID TABLET (FP) PO SCH (09:48)
[2022-07-02] MEDS: QUEtiapine FUMARATE 50 MG TABLET PO SCH ×2 (09:48→17:05)
[2022-07-02] MEDS: QUEtiapine FUMARATE 100 MG TABLET (FP) PO SCH (21:07)
[2022-07-02] MEDS: MELATONIN 5 MG TABLETS PO SCH (21:07)
[2022-07-02] MEDS: THIAMINE HCL 100 MG TABLET (FP) PO SCH (21:07)
[2022-07-03] MEDS: BUPRENORPHINE/NALOXONE 8 MG/2 MG FILM PACKET SL SCH ×2 (10:29→17:46)
[2022-07-03] MEDS: QUEtiapine FUMARATE 50 MG TABLET PO SCH ×2 (10:29→17:47)
[2022-07-03] MEDS: PRENATAL VITAMINS W/ FOLIC ACID TABLET (FP) PO SCH (10:30)
[2022-07-03] MEDS: NICOTINE 10 MG CARTRIDGE (INHALER) IH PRN ×2 (10:31→21:08)
[2022-07-03] MEDS: NICOTINE 7 MG/24 HOURS TOPICAL PATCH TD SCH (10:31)
[2022-07-03] MEDS: MELATONIN 5 MG TABLETS PO SCH (21:07)
[2022-07-03] MEDS: THIAMINE HCL 100 MG TABLET (FP) PO SCH (21:07)
[2022-07-03] MEDS: QUEtiapine FUMARATE 100 MG TABLET (FP) PO SCH (21:07)
[2022-07-04] MEDS: PRENATAL VITAMINS W/ FOLIC ACID TABLET (FP) PO SCH (09:41)
[2022-07-04] MEDS: QUEtiapine FUMARATE 50 MG TABLET PO SCH ×2 (09:41→17:05)
[2022-07-04] MEDS: NICOTINE 7 MG/24 HOURS TOPICAL PATCH TD SCH (09:41)
[2022-07-04] MEDS: BUPRENORPHINE/NALOXONE 8 MG/2 MG FILM PACKET SL SCH ×2 (09:42→17:05)
[2022-07-04] MEDS: NICOTINE 10 MG CARTRIDGE (INHALER) IH PRN (09:42)
[2022-07-04] MEDS: QUEtiapine FUMARATE 100 MG TABLET (FP) PO SCH (21:08)
[2022-07-04] MEDS: MELATONIN 5 MG TABLETS PO SCH (21:08)
[2022-07-04] MEDS: THIAMINE HCL 100 MG TABLET (FP) PO SCH (21:08)
[2022-07-05] MEDS: NICOTINE 10 MG CARTRIDGE (INHALER) IH PRN (09:44)
[2022-07-05] MEDS: PRENATAL VITAMINS W/ FOLIC ACID TABLET (FP) PO SCH (09:44)
[2022-07-05] MEDS: BUPRENORPHINE/NALOXONE 8 MG/2 MG FILM PACKET SL SCH ×2 (09:44→17:36)
[2022-07-05] MEDS: QUEtiapine FUMARATE 50 MG TABLET PO SCH ×2 (09:44→17:36)
[2022-07-05] MEDS: NICOTINE 7 MG/24 HOURS TOPICAL PATCH TD SCH (09:45)
[2022-07-05] MEDS ORDERED: NICOTINE 7 MG/24 HOURS TOPICAL PATCH TD PRN (14:26)
[2022-07-05] MEDS: QUEtiapine FUMARATE 100 MG TABLET (FP) PO SCH (21:05)
[2022-07-05] MEDS: THIAMINE HCL 100 MG TABLET (FP) PO SCH (21:05)
[2022-07-05] MEDS: MELATONIN 5 MG TABLETS PO SCH (21:05)
[2022-07-06] MEDS: BUPRENORPHINE/NALOXONE 8 MG/2 MG FILM PACKET SL SCH ×2 (10:04→17:56)
[2022-07-06] MEDS: QUEtiapine FUMARATE 50 MG TABLET PO SCH ×2 (10:05→17:56)
[2022-07-06] MEDS: PRENATAL VITAMINS W/ FOLIC ACID TABLET (FP) PO SCH (10:05)
[2022-07-06] MEDS: NICOTINE 10 MG CARTRIDGE (INHALER) IH PRN ×2 (12:05→21:08)
[2022-07-06] MEDS: QUEtiapine FUMARATE 100 MG TABLET (FP) PO SCH (21:07)
[2022-07-06] MEDS: hydrOXYzine PAMOATE 25 MG CAPSULE (FP) PO PRN (21:07)
[2022-07-06] MEDS: THIAMINE HCL 100 MG TABLET (FP) PO SCH (21:07)
[2022-07-06] MEDS: MELATONIN 5 MG TABLETS PO SCH (21:07)
[2022-07-07] MEDS: NICOTINE 10 MG CARTRIDGE (INHALER) IH PRN ×2 (09:28→17:56)
[2022-07-07] MEDS: PRENATAL VITAMINS W/ FOLIC ACID TABLET (FP) PO SCH (09:29)
[2022-07-07] MEDS: BUPRENORPHINE/NALOXONE 8 MG/2 MG FILM PACKET SL SCH ×2 (09:30→17:55)
[2022-07-07] MEDS: QUEtiapine FUMARATE 50 MG TABLET PO SCH ×2 (10:13→17:55)
[2022-07-07] MEDS: MELATONIN 5 MG TABLETS PO SCH (21:03)
[2022-07-07] MEDS: hydrOXYzine PAMOATE 25 MG CAPSULE (FP) PO PRN (21:03)
[2022-07-07] MEDS: QUEtiapine FUMARATE 100 MG TABLET (FP) PO SCH (21:03)
[2022-07-07] MEDS: THIAMINE HCL 100 MG TABLET (FP) PO SCH (21:03)
[2022-07-08] MEDS: PRENATAL VITAMINS W/ FOLIC ACID TABLET (FP) PO SCH (09:53)
[2022-07-08] MEDS: BUPRENORPHINE/NALOXONE 8 MG/2 MG FILM PACKET SL SCH ×2 (09:53→17:30)
[2022-07-08] MEDS: QUEtiapine FUMARATE 50 MG TABLET PO SCH ×2 (09:53→17:30)
[2022-07-08] MEDS: NICOTINE 10 MG CARTRIDGE (INHALER) IH PRN (09:55)
[2022-07-08] MEDS: THIAMINE HCL 100 MG TABLET (FP) PO SCH (21:02)
[2022-07-08] MEDS: MELATONIN 5 MG TABLETS PO SCH (21:02)
[2022-07-08] MEDS: hydrOXYzine PAMOATE 25 MG CAPSULE (FP) PO PRN (21:03)
[2022-07-08] MEDS: QUEtiapine FUMARATE 100 MG TABLET (FP) PO SCH (21:03)
[2022-07-09] MEDS: PRENATAL VITAMINS W/ FOLIC ACID TABLET (FP) PO SCH (09:28)
[2022-07-09] MEDS: QUEtiapine FUMARATE 50 MG TABLET PO SCH ×2 (09:28→17:35)
[2022-07-09] MEDS: BUPRENORPHINE/NALOXONE 8 MG/2 MG FILM PACKET SL SCH ×2 (09:29→17:35)
[2022-07-09] MEDS: NICOTINE 10 MG CARTRIDGE (INHALER) IH PRN (09:35)
[2022-07-09] MEDS: MELATONIN 5 MG TABLETS PO SCH (21:02)
[2022-07-09] MEDS: QUEtiapine FUMARATE 100 MG TABLET (FP) PO SCH (21:02)
[2022-07-09] MEDS: THIAMINE HCL 100 MG TABLET (FP) PO SCH (21:02)
[2022-07-10] MEDS: BUPRENORPHINE/NALOXONE 8 MG/2 MG FILM PACKET SL SCH ×2 (09:35→17:59)
[2022-07-10] MEDS: PRENATAL VITAMINS W/ FOLIC ACID TABLET (FP) PO SCH (09:36)
[2022-07-10] MEDS: QUEtiapine FUMARATE 50 MG TABLET PO SCH ×2 (09:36→17:59)
[2022-07-10] MEDS: NICOTINE 10 MG CARTRIDGE (INHALER) IH PRN ×2 (09:36→17:59)
[2022-07-10] MEDS: hydrOXYzine PAMOATE 25 MG CAPSULE (FP) PO PRN (21:03)
[2022-07-10] MEDS: QUEtiapine FUMARATE 100 MG TABLET (FP) PO SCH (21:03)
[2022-07-10] MEDS: MELATONIN 5 MG TABLETS PO SCH (21:03)
[2022-07-10] MEDS: THIAMINE HCL 100 MG TABLET (FP) PO SCH (21:03)
[2022-07-11] MEDS: QUEtiapine FUMARATE 50 MG TABLET PO SCH ×2 (10:10→18:02)
[2022-07-11] MEDS: PRENATAL VITAMINS W/ FOLIC ACID TABLET (FP) PO SCH (10:11)
[2022-07-11] MEDS: BUPRENORPHINE/NALOXONE 8 MG/2 MG FILM PACKET SL SCH ×2 (10:11→18:02)
[2022-07-11] MEDS: NICOTINE 10 MG CARTRIDGE (INHALER) IH PRN (10:11)
[2022-07-11] MEDS: THIAMINE HCL 100 MG TABLET (FP) PO SCH (21:02)
[2022-07-11] MEDS: MELATONIN 5 MG TABLETS PO SCH (21:02)
[2022-07-11] MEDS: hydrOXYzine PAMOATE 25 MG CAPSULE (FP) PO PRN (21:03)
[2022-07-11] MEDS: QUEtiapine FUMARATE 100 MG TABLET (FP) PO SCH (21:03)
[2022-07-12] MEDS: BUPRENORPHINE/NALOXONE 8 MG/2 MG FILM PACKET SL SCH ×2 (09:38→17:54)
[2022-07-12] MEDS: QUEtiapine FUMARATE 50 MG TABLET PO SCH ×2 (09:38→17:04)
[2022-07-12] MEDS: NICOTINE 10 MG CARTRIDGE (INHALER) IH PRN ×3 (09:39→21:10)
[2022-07-12] MEDS: PRENATAL VITAMINS W/ FOLIC ACID TABLET (FP) PO SCH (09:39)
[2022-07-12] MEDS: MELATONIN 5 MG TABLETS PO SCH (21:12)
[2022-07-12] MEDS: QUEtiapine FUMARATE 100 MG TABLET (FP) PO SCH (21:12)
[2022-07-12] MEDS: hydrOXYzine PAMOATE 25 MG CAPSULE (FP) PO PRN (21:13)
[2022-07-12] MEDS: THIAMINE HCL 100 MG TABLET (FP) PO SCH (21:13)
[2022-07-13] MEDS: PRENATAL VITAMINS W/ FOLIC ACID TABLET (FP) PO SCH (09:38)
[2022-07-13] MEDS: QUEtiapine FUMARATE 50 MG TABLET PO SCH ×2 (09:38→17:54)
[2022-07-13] MEDS: NICOTINE 10 MG CARTRIDGE (INHALER) IH PRN ×2 (09:38→17:55)
[2022-07-13] MEDS: BUPRENORPHINE/NALOXONE 8 MG/2 MG FILM PACKET SL SCH ×2 (09:38→17:54)
[2022-07-13] MEDS: hydrOXYzine PAMOATE 25 MG CAPSULE (FP) PO PRN (21:03)
[2022-07-13] MEDS: MELATONIN 5 MG TABLETS PO SCH (21:03)
[2022-07-13] MEDS: QUEtiapine FUMARATE 100 MG TABLET (FP) PO SCH (21:03)
[2022-07-13] MEDS: THIAMINE HCL 100 MG TABLET (FP) PO SCH (21:03)
[2022-07-14] MEDS: PRENATAL VITAMINS W/ FOLIC ACID TABLET (FP) PO SCH (09:22)
[2022-07-14] MEDS: BUPRENORPHINE/NALOXONE 8 MG/2 MG FILM PACKET SL SCH ×2 (09:22→17:45)
[2022-07-14] MEDS: QUEtiapine FUMARATE 50 MG TABLET PO SCH ×2 (09:22→17:45)
[2022-07-14] MEDS: NICOTINE 10 MG CARTRIDGE (INHALER) IH PRN (09:23)
[2022-07-14] MEDS: hydrOXYzine PAMOATE 25 MG CAPSULE (FP) PO PRN (21:02)
[2022-07-14] MEDS: MELATONIN 5 MG TABLETS PO SCH (21:02)
[2022-07-14] MEDS: THIAMINE HCL 100 MG TABLET (FP) PO SCH (21:02)
[2022-07-14] MEDS: QUEtiapine FUMARATE 100 MG TABLET (FP) PO SCH (21:02)
[2022-07-15 06:53] VITALS: BP 122/76; PULSE 77; RESP 16; TEMP 97.3
[2022-07-15] MEDS: PRENATAL VITAMINS W/ FOLIC ACID TABLET (FP) PO SCH (09:28)
[2022-07-15] MEDS: QUEtiapine FUMARATE 50 MG TABLET PO SCH (09:28)
[2022-07-15] MEDS: NICOTINE 10 MG CARTRIDGE (INHALER) IH PRN (09:29)
[2022-07-15] MEDS: BUPRENORPHINE/NALOXONE 8 MG/2 MG FILM PACKET SL SCH (10:31)
== END 2022-07-15 10:32 | disposition home or self-care (01) | DRG 772 ==
LOC: YASAS 13:46 → Y3E 13:47
PROVIDERS: ADMIT Allergy & Immunology; ATTEND Psychiatry & Neurology Pain Medicine
PROC: HZ42ZZZ Group Counseling for Substance Abuse Treatment, Cognitive-Behavioral (ICD-10-PCS; principal; 2022-06-17)
DX: F11.20 Opioid dependence, uncomplicated (principal); F12.20 Cannabis dependence, uncomplicated; F17.210 Nicotine dependence, cigarettes, uncomplicated; L02.414 Cutaneous abscess of left upper limb